=== PATIENT | female | born 1970 | race Two or more races ===

== ENCOUNTER → 2017-01-06 | Outpatient (REF) | payer BC ==
[2017-01-06 11:31] LABS: BASO % 0.6 % (0.0-1.0); EOS # 0.2 K/mm3 (0.0-0.50); EOS % 2.5 % (0.0-3.0); LARGE UNSTAINED CELL # 0.2 K/mm3 (0.0-0.4); LARGE UNSTAINED CELL % 3.4 % (0.0-4.0); LYMPH % 31.5 % (24.0-44.0); MEAN CORPUSCULAR HEMOGLOBIN 28.1 pg (27.0-33.0); MEAN CORPUSCULAR HGB CONC 32.2 g/dl (32.0-36.5); MEAN CORPUSCULAR VOLUME 87.2 fl (80.0-96.0); MONO # 0.4 K/mm3 (0.0-0.8); MONO % 6.2 % (0.0-5.0); NEUTROPHILS # 3.5 K/mm3 (1.8-7.7); NEUTROPHILS % 55.8 % (36.0-66.0); PLATELET COUNT, AUTOMATED 400 k/mm3 (150-450); RED CELL DISTRIBUTION WIDTH 12.8 % (11.5-14.5); WHITE BLOOD COUNT 6.3 K/mm3 (4.0-10.0)
[2017-01-06 12:15] LABS: ALBUMIN 3.5 GM/DL (3.2-5.2); ALBUMIN/GLOBULIN RATIO 0.88 (1.00-1.93); ALKALINE PHOSPHATASE 86 U/L (45-117); ALT/SGPT 21 U/L (12-78); ANION GAP 8 MEQ/L (8-16); AST/SGOT 14 U/L (15-37); BILIRUBIN,TOTAL 0.3 MG/DL (0.2-1.0); BLOOD UREA NITROGEN 15 MG/DL (7-18); CALCIUM LEVEL 9.3 MG/DL (8.5-10.1); CARBON DIOXIDE LEVEL 31 MEQ/L (21-32); CHLORIDE LEVEL 104 MEQ/L (98-107); CHOLESTEROL LEVEL 210 MG/DL (<200); CREATININE FOR GFR 0.69 MG/DL (0.55-1.02); GLOMERULAR FILTRATION RATE > 60.0 (>58); GLUCOSE, FASTING 103 MG/DL (70-105); POTASSIUM SERUM 3.9 MEQ/L (3.5-5.1); SODIUM LEVEL 143 MEQ/L (136-145); TOTAL PROTEIN 7.5 GM/DL (6.4-8.2); TRIGLYCERIDES LEVEL 115 MG/DL (<150)
== END ==
LOC: M SFHCCLAY 09:35
PROVIDERS: ATTEND Family Medicine
DX: K64.9 Unspecified hemorrhoids (principal); Z13.220 Encounter for screening for lipoid disorders

== ENCOUNTER → 2017-03-25 | Outpatient (REF) | payer BC | LOC: M LAB REF 13:15 | PROVIDERS: ATTEND Obstetrics & Gynecology | DX: Z12.4 Encounter for screening for malignant neoplasm of cervix (principal); R87.610 Atypical squamous cells of undetermined significance on cytologic smear of cervix (ASC-US) ==

== ENCOUNTER → 2017-04-07 | Outpatient (REF) | payer BC ==
[2017-04-07 13:59] LABS: MEAN CORPUSCULAR HEMOGLOBIN 29.6 pg (27.0-33.0); MEAN CORPUSCULAR HGB CONC 32.9 g/dl (32.0-36.5)
[2017-04-07 14:43] LABS: ALBUMIN 3.8 GM/DL (3.2-5.2); ALBUMIN/GLOBULIN RATIO 1.06 (1.00-1.93); ALKALINE PHOSPHATASE 88 U/L (45-117); ALT/SGPT 22 U/L (12-78); ANION GAP 6 MEQ/L (8-16); AST/SGOT 18 U/L (15-37); BILIRUBIN,TOTAL 0.5 MG/DL (0.2-1.0); BLOOD UREA NITROGEN 12 MG/DL (7-18); CALCIUM LEVEL 8.2 MG/DL (8.5-10.1); CARBON DIOXIDE LEVEL 29 MEQ/L (21-32); CHLORIDE LEVEL 105 MEQ/L (98-107); GLOMERULAR FILTRATION RATE > 60.0 (>58); GLUCOSE, FASTING 83 MG/DL (70-105); POTASSIUM SERUM 4.2 MEQ/L (3.5-5.1); SODIUM LEVEL 140 MEQ/L (136-145); TOTAL PROTEIN 7.4 GM/DL (6.4-8.2)
[2017-04-07 14:48] LABS: PROGESTERONE < 0.2 NG/ML
[2017-04-07 14:49] LABS: ESTRADIOL < 19.0 PG/ML; FOLLICLE STIMULATING HORMONE 115.8 mIU/mL; LUTEINIZING HORMONE 54.3 mIU/mL
[2017-04-12 00:06] LABS: ESTRONE SERUM 42 pg/mL (.)
== END ==
LOC: M LAB REF 12:43
PROVIDERS: ATTEND Obstetrics & Gynecology
DX: N92.1 Excessive and frequent menstruation with irregular cycle (principal)

== ENCOUNTER → 2017-07-07 | Outpatient (CLI) | payer BC ==
--- NOTE | 2017-07-07 09:45 | REP ---
Ultrasonography of the palpable lump in the abdominal wall left lateral: Ultrasonography of the palpable lump identifies a solid mass measuring 3.6 x 0.6 x 2.0 cm. With color Doppler assessment there is no vascular flow visible within this mass. Findings are nonspecific but possibly a lipoma. Consider MRI follow-up. Signed by Shankar Tyson MD 07/07/2017 08:19 A
== END ==
LOC: M RAD 06:51
PROVIDERS: ATTEND Physician Assistant
DX: Q79.59 Other congenital malformations of abdominal wall (principal)

== ENCOUNTER → 2017-12-12 | Outpatient (CLI) | payer BC | LOC: M CLY 15:32 | DX: M79.671 Pain in right foot (principal) | CPT/HCPCS: 73630 ==

== ENCOUNTER → 2018-02-01 | Outpatient (CLI) | payer BC | LOC: M RAD 16:25 | DX: M79.671 Pain in right foot (principal) ==

== ENCOUNTER → 2018-09-15 | Outpatient (REF) | payer OTHER | LOC: M SFHCLERA 17:06 | DX: N39.0 Urinary tract infection, site not specified (principal) | CPT/HCPCS: 87186 ==

== ENCOUNTER → 2018-12-18 | Outpatient (REF) | payer OTHER, SELFPAY | LOC: M LAB REF 16:16 | PROVIDERS: ATTEND Physician Assistant | DX: N39.0 Urinary tract infection, site not specified (principal) ==

== ENCOUNTER → 2019-01-02 | Outpatient (REF) | payer OTHER ==
[2019-01-02 14:22] LABS: FREE T4 1.11 NG/DL (0.76-1.46)
[2019-01-02 14:28] LABS: ESTRADIOL < 19.0 PG/ML; FOLLICLE STIMULATING HORMONE 105.1 mIU/mL; LUTEINIZING HORMONE 42.7 mIU/mL
[2019-01-04 00:07] LABS: TESTOSTERONE FREE (DIRECT) 0.8 pg/mL (0.0-4.2)
== END ==
LOC: M LAB REF 13:37
PROVIDERS: ATTEND Obstetrics & Gynecology
DX: N95.0 Postmenopausal bleeding (principal)

== ENCOUNTER 2019-04-27 07:42 | Day surgery (SDC) | payer OTHER ==
[~2019-04-27] VITALS: Ht 172.7 cm; Wt 93.4 kg
[2019-04-27] MEDS ORDERED: LR 1,000 ML IV ONE (08:00)
[2019-04-27] MEDS ORDERED: KETOROLAC 60 MG/2 ML VIAL (J1885) As Ordered ONE (08:18)
[2019-04-27] MEDS ORDERED: PROPOFOL 200 MG/20 ML VIAL As Ordered ONE (08:18)
[2019-04-27] MEDS ORDERED: LIDOCAINE 2% INJ 100 MG/5 ML SDV (FOR ANES.) As Ordered ONE (08:18)
[2019-04-27] MEDS ORDERED: ONDANSETRON 4MG/2ML VIAL (J2405) As Ordered ONE (08:18)
[2019-04-27] MEDS ORDERED: fentaNYL 100 MCG/2 ML INJECTION (J3010) As Ordered ONE (08:18)
[2019-04-27] MEDS ORDERED: MIDAZOLAM INJ 2 MG/2 ML VIAL (J2250) As Ordered ONE (08:18)
[2019-04-27] MEDS ORDERED: dexameTHASONE 4 MG/ML 1ML VIAL (J1100) As Ordered ONE ×2 (08:18→10:34)
[2019-04-27 08:34] LABS: HEMATOCRIT 42.2 % (36.0-47.0); HEMOGLOBIN 13.9 g/dl (12.0-15.5); MEAN CORPUSCULAR HEMOGLOBIN 28.1 pg (27.0-33.0); MEAN CORPUSCULAR HGB CONC 32.9 g/dl (32.0-36.5); MEAN CORPUSCULAR VOLUME 85.3 fl (80.0-96.0); PLATELET COUNT, AUTOMATED 261 10^3/uL (150-450); RED BLOOD COUNT 4.95 10^6/uL (4.00-5.40); WHITE BLOOD COUNT 4.7 10^3/uL (4.0-10.0)
[2019-04-27 08:35] LABS: URINE PREG TEST NEGATIVE (NEGATIVE)
[2019-04-27] MEDS ORDERED: ACETAMINOPHEN 1000MG 100ML IV BTL (OFIRMEV) (J0131 PER 10MG) As Ordered ONE (10:31)
[2019-04-27] MEDS ORDERED: IBUP80TA PO (11:01)
[2019-04-27] MEDS ORDERED: PERCOCET 5MG/325MG TAB PO PRN ×2 (11:30→11:45)
[2019-04-27] MEDS ORDERED: METOCLOPRAMIDE INJ 10MG/2ML VIAL (J2765) IV PRN (11:30)
[2019-04-27] MEDS ORDERED: ONDANSETRON 4MG/2ML VIAL (J2405) IV PRN (11:30)
[2019-04-27] MEDS ORDERED: LR 1,000 ML IV SCH ×2 (11:30→11:45)
[2019-04-27] MEDS ORDERED: fentaNYL 100 MCG/2 ML INJECTION (J3010) IV PRN (11:30)
[2019-04-27 13:35] VITALS: BP 148/84
[2019-04-27] MEDS ORDERED: IBUPROFEN 800 MG TAB PO SCH (15:00)
--- NOTE | 2019-04-28 08:26 | RO ---
DATE OF PROCEDURE: 04/27/2019 Nano is a 48-year-old female with postmenopausal bleeding. After counseling, a decision was made for dilation and curettage (D and C), hysteroscopy. PREOPERATIVE DIAGNOSIS: Postmenopausal bleeding. POSTOPERATIVE DIAGNOSIS: 1. Postmenopausal bleeding. 2. Atrophic cavity with a distorted cavity with possible fibroid. PROCEDURE: 1. Dilation and curettage. 2. Hysteroscopy. SURGEON: Roland Andersen DO MACHINE SHOP SPECIALIST: ANESTHESIA: General. COMPLICATIONS: None. ESTIMATED BLOOD LOSS: Less than 10 mL. FINDINGS: The uterus sounded to approximately 8 cm in size. Bilateral tubal ostia visualized. Atrophic endometrial cavity noted with a distorted cavity with possible fibroid in the fundal area. After obtaining informed consent, the patient was taken to the operating room where general anesthetic was found to be adequate. She was then draped and prepped in the usual sterile fashion in the dorsal lithotomy position. At this point, a straight catheter of the bladder was performed for approximately 150 mL of clear urine. We then placed a weighted speculum in the posterior fornix of the vagina. Using Cordova retractor, the anterior lip of the cervix was then grasped with a single-tooth tenaculum. The uterus was sounded to approximately 8 cm in size. The cervix serially dilated, the hysteroscope inserted with the above-noted finding. At this point, the hysteroscope was removed and sharp curettage of the endometrial lining was done. The tissues were sent to pathology for final diagnosis. Good hemostasis noted. The patient tolerated procedure well. She was then transferred to the recovery room in stable condition.
== END 2019-04-27 14:10 | disposition home or self-care (01) ==
LOC: M SDC 07:42
PROVIDERS: ATTEND Obstetrics & Gynecology
DX: N95.0 Postmenopausal bleeding (principal); Z85.3 Personal history of malignant neoplasm of breast; Z88.2 Allergy status to sulfonamides; Z92.21 Personal history of antineoplastic chemotherapy
CPT/HCPCS: 36415; 58558; 84703; 85027; 86850; 86900; 86901; 88305; J0131; J1100; J1885; J2250; J2405; J3010

== ENCOUNTER → 2019-12-25 | Outpatient (REF) | payer OTHER ==
[~2019-12-25] MED LIST: IBUP80TA PO
== END ==
LOC: M LAB REF 17:23
PROVIDERS: ATTEND Obstetrics & Gynecology
DX: R30.0 Dysuria (principal)

== ENCOUNTER 2020-01-16 09:42 | Day surgery (SDC) | payer OTHER ==
[2020-01-16] VITALS (7 sets, daily range): BP systolic 111–160; BP diastolic 58–83
[~2020-01-16] VITALS: Ht 172.7 cm; Wt 97.0 kg
[~2020-01-16 09:42] MED LIST changes: +LR 1,000 ML IV ONE; +ceFAZolin SOD 2 GM in IV 1 EA IV ONE
[2020-01-16 10:21] LABS: HEMATOCRIT 45.5 % (36.0-47.0); HEMOGLOBIN 14.8 g/dl (12.0-15.5); MEAN CORPUSCULAR HEMOGLOBIN 28.4 pg (27.0-33.0); MEAN CORPUSCULAR HGB CONC 32.5 g/dl (32.0-36.5); MEAN CORPUSCULAR VOLUME 87.3 fl (80.0-96.0); PLATELET COUNT, AUTOMATED 314 10^3/uL (150-450); RED BLOOD COUNT 5.21 10^6/uL (4.00-5.40); WHITE BLOOD COUNT 4.3 10^3/uL (4.0-10.0)
[2020-01-16] MEDS ORDERED: FLON1SPR NARES (10:28)
[2020-01-16 10:45] LABS: BLOOD UREA NITROGEN 8 MG/DL (7-18); CALCIUM LEVEL 8.6 MG/DL (8.5-10.1); CARBON DIOXIDE LEVEL 29 MEQ/L (21-32); CHLORIDE LEVEL 109 MEQ/L (98-107); CREATININE FOR GFR 0.68 MG/DL (0.55-1.30); GLOMERULAR FILTRATION RATE > 60.0 (>58); GLUCOSE, FASTING 105 MG/DL (70-100); POTASSIUM SERUM 3.9 MEQ/L (3.5-5.1); SODIUM LEVEL 141 MEQ/L (136-145)
[2020-01-16] MEDS ORDERED: BUPIVACAINE/EPIN 0.25% 30 ML VIAL As Ordered ONE (13:08)
[2020-01-16] MEDS ORDERED: FLUORESCEIN 10% (100MG/ML) 5 ML VIAL As Ordered ONE (13:08)
[2020-01-16] MEDS ORDERED: propofoL 200 MG/20 ML VIAL As Ordered ONE (13:42)
[2020-01-16] MEDS ORDERED: LIDOCAINE 2% INJ 100 MG/5 ML SDV (FOR ANES.) As Ordered ONE (13:42)
[2020-01-16] MEDS ORDERED: ONDANSETRON 4MG/2ML VIAL (J2405) As Ordered ONE (13:42)
[2020-01-16] MEDS ORDERED: dexameTHASONE 4 MG/ML 1ML VIAL (J1100) As Ordered ONE (13:42)
[2020-01-16] MEDS ORDERED: MIDAZOLAM INJ 2 MG/2 ML VIAL (J2250) As Ordered ONE (13:42)
[2020-01-16] MEDS ORDERED: SUGAMMADEX SODIUM 500 MG/5 ML VIAL (BRIDION) As Ordered ONE (13:42)
[2020-01-16] MEDS ORDERED: fentaNYL 250 MCG/5 ML INJECTION (J3010) As Ordered ONE (13:42)
[2020-01-16] MEDS ORDERED: METOCLOPRAMIDE INJ 10MG/2ML VIAL (J2765) As Ordered ONE (13:42)
[2020-01-16] MEDS ORDERED: ROCURONIUM BROMIDE 50 MG/5 ML VIAL As Ordered ONE (13:42)
[2020-01-16] MEDS ORDERED: KETOROLAC 60 MG/2 ML VIAL (J1885) As Ordered ONE (13:42)
[2020-01-16] MEDS ORDERED: ACETAMINOPHEN 1000MG 100ML IV BTL (OFIRMEV) (J0131 PER 10MG) As Ordered ONE (13:47)
[2020-01-16] MEDS ORDERED: IBUP80TA PO (15:29)
[2020-01-16] MEDS ORDERED: PERCOCET PO (15:29)
[2020-01-16] MEDS ORDERED: PERCOCET 5MG/325MG TAB PO PRN (15:30)
[2020-01-16] MEDS ORDERED: ONDANSETRON 4 MG TAB (S0181) PO PRN (15:30)
[2020-01-16] MEDS: fentaNYL 100 MCG/2 ML INJECTION (J3010) IV PRN ×4 (15:35→15:50)
[2020-01-16] MEDS: PERCOCET 5MG/325MG TAB PO PRN ×2 (15:40→16:10)
[2020-01-16] MEDS ORDERED: LR 1,000 ML IV SCH (16:00)
[2020-01-16] MEDS ORDERED: ONDANSETRON 4MG/2ML VIAL (J2405) IV PRN (16:00)
[2020-01-16] MEDS: LR 1,000 ML IV SCH (17:13)
[2020-01-16] MEDS: DOCUSATE SODIUM 100 MG CAP PO SCH (21:25)
[2020-01-16] MEDS: KETOROLAC 30 MG/ML VIAL (J1885) IV SCH (21:26)
[2020-01-17] VITALS: BP 108/76
[2020-01-17] MEDS: LR 1,000 ML IV SCH (03:16)
[2020-01-17] MEDS: KETOROLAC 30 MG/ML VIAL (J1885) IV SCH ×2 (03:17→08:34)
[2020-01-17 04:00] VITALS: BP 129/66
[2020-01-17 08:00] VITALS: BP 140/68
[2020-01-17] MEDS: DOCUSATE SODIUM 100 MG CAP PO SCH (08:33)
--- NOTE | 2020-01-17 10:25 | RO ---
DATE OF PROCEDURE: 01/16/2020 Nano is a 49-year-old female with an extensive history of pelvic pain and postmenopausal bleeding, unable to do endometrial biopsy. After counseling, a decision was made to proceed with a robotic hysterectomy, removal of both tubes and ovaries. PREOPERATIVE DIAGNOSES: 1. Postmenopausal bleeding. 2. Pelvic pain. 3. Cervical stenosis. POSTOPERATIVE DIAGNOSES: 1. Postmenopausal bleeding. 2. Pelvic pain. 3. Cervical stenosis. 4. Pelvic and bladder adhesions. PROCEDURES: 1. Robotic-assisted total hysterectomy. 2. Bilateral salpingo-oophorectomy. 3. Extensive lysis of bladder adhesions. 4. Cystoscopy. ANESTHESIA: General. SURGEON: Roland Andersen DO DECK LID FITTER: SIMRAN Perry COMPLICATION: None. ESTIMATED BLOOD LOSS: 50 mL. SPECIMENS SENT TO THE LABORATORY: Uterus, tubes, and ovaries. FINDINGS: Enlarged uterus with significant bladder adhesions to the lower uterine segment. Normal-appearing ovaries. The bilateral ureteral jets noted. No evidence of any bladder injury noted. DESCRIPTION OF PROCEDURE: Obtaining informed consent, the patient was taken to the operating room where general anesthetic was found to be adequate. She was then draped and prepped in the usual sterile fashion in the dorsal lithotomy position. At this point, a Metcalf catheter was placed in the bladder for drainage. We then turned our attention to the abdomen, where a Veress needle was placed. The abdomen was insufflated with CO2 gas to approximately 3.5 liters. Then, an 8-mm supraumbilical incision and port was made for robotic trocar. Then, two 8-mm lateral ports were placed for robotic arm #2 and the assist port on the right side and 8-mm lateral port placed for robotic arm #1. At this point, the patient was placed in steep Trendelenburg. The robot was brought to the patient's right side, and the camera port was then docked. Proper targeting was done. After targeting the robot, the arm #1 and arm #2 were then docked in usual fashion. Vessel sealer placed in arm #1. Bipolar grasper in arm #2. I then unscrubbed and went to the surgeon side and began the hysterectomy. The infundibulopelvic ligament was identified. This was cauterized and cut using the vessel sealer. This was taken all the way down to the uterine artery. The opposite side was done in a similar fashion. At this point, the bladder was found severely adherent to the anterior lower uterine segment. Careful dissection was done to attempt to free the bladder off the lower uterine segment. The bladder was then retrograde filled with 250 mL of normal saline. No extravasation of fluid was noted. At this point with the bladder completely out of the operative field, the anterior and posterior colpotomy was then performed, and the uterus, tubes, and ovaries were removed through the vagina. A 2-0 V-Loc suture was introduced, and the vaginal cuff was then closed in running fashion using 2-0 V-Loc suture. Pelvis copiously irrigated with normal saline and suctioned out. 1 mL of Furacin was given by the anesthesiologist to help with the cystoscopy. I then retrograde filled the bladder for 250 mL. The catheter was removed. Cystoscope inserted. Bilateral ureteral jets noted. No evidence of any bladder injury noted. At this point, the cystoscope was removed. A Metcalf catheter was placed back in the bladder. I then turned my attention to the abdomen, where the robotic trocars were removed, and the sites were closed using 3-0 Vicryl on a Jacob in a subcuticular fashion. 0.25% Marcaine was placed for postoperative pain, and Dermabond was placed. The patient tolerated the procedure well. She was then transferred to recovery room in stable condition.
[2020-01-17] MEDS ORDERED: IBUPROFEN 800 MG TAB PO SCH (23:00)
== END 2020-01-17 10:10 | disposition home or self-care (01) ==
LOC: M SDC 09:42 → M PED 16:55 → M SDC 01-17 10:10
PROVIDERS: ATTEND Obstetrics & Gynecology
DX: N72 Inflammatory disease of cervix uteri (principal); R10.2 Pelvic and perineal pain; N88.2 Stricture and stenosis of cervix uteri; N73.6 Female pelvic peritoneal adhesions (postinfective); N32.89 Other specified disorders of bladder; M54.5 Low back pain; K64.9 Unspecified hemorrhoids; Z87.440 Personal history of urinary (tract) infections; Z85.3 Personal history of malignant neoplasm of breast; Z92.21 Personal history of antineoplastic chemotherapy; Z90.13 Acquired absence of bilateral breasts and nipples; Z88.2 Allergy status to sulfonamides
CPT/HCPCS: 36415; 58571; 80048; 81025; 85027; 86850; 86900; 86901; 88307; 96374; 96376; J0131; J0690; J1100; J1885; J2250; J2405; J2765; J3010

== ENCOUNTER → 2020-10-30 | Outpatient (REF) | payer OTHER ==
[~2020-10-30] MED LIST changes: +FLON1SPR NARES; -LR 1,000 ML IV ONE; +PERCOCET PO; -ceFAZolin SOD 2 GM in IV 1 EA IV ONE
[2020-10-30 17:59] LABS: ALBUMIN 3.7 GM/DL (3.2-5.2); ALT/SGPT 28 U/L (12-78); BILIRUBIN,TOTAL 0.3 MG/DL (0.2-1.0); BLOOD UREA NITROGEN 11 MG/DL (7-18); CALCIUM LEVEL 9.1 MG/DL (8.5-10.1); CARBON DIOXIDE LEVEL 29 MEQ/L (21-32); CHLORIDE LEVEL 104 MEQ/L (98-107); CHOLESTEROL LEVEL 216 MG/DL (<200); CHOLESTEROL RISK RATIO 3.323 (<5); CREATININE FOR GFR 0.65 MG/DL (0.55-1.30); GLOMERULAR FILTRATION RATE > 60.0 (>58); GLUCOSE, FASTING 95 MG/DL (70-100); HDL CHOLESTEROL 65 MG/DL (>40); LDL CHOLESTEROL 135 MG/DL (<100); NON-HDL-C 151 MG/DL; POTASSIUM SERUM 4.2 MEQ/L (3.5-5.1); SODIUM LEVEL 137 MEQ/L (136-145); TOTAL PROTEIN 7.4 GM/DL (6.4-8.2); TRIGLYCERIDES LEVEL 78 MG/DL (<150)
== END ==
LOC: M SFHCCLAY 09:31
PROVIDERS: ATTEND Family Medicine
DX: E78.2 Mixed hyperlipidemia (principal)

== ENCOUNTER → 2021-06-23 | Outpatient (REF) | payer OTHER ==
[2021-06-24 16:00] LABS: APPEARANCE, URINE CLOUDY (CLEAR); BACTERIA, URINE AUTO 1+ (NEGATIVE); BILIRUBIN, URINE AUTO NEGATIVE (NEGATIVE); BLOOD, URINE BLOOD 2+ (NEGATIVE); COLOR, URINE YELLOW (YELLOW); GLUCOSE, URINE (UA) AUTO NEGATIVE (NEGATIVE); KETONE, URINE AUTO NEGATIVE (NEGATIVE); LEUKOCYTE ESTERASE, URINE AUTO 3+ (NEGATIVE); MUCUS, URINE SMALL (NEGATIVE); NITRITE, URINE AUTO NEGATIVE (NEGATIVE); PROTEIN, URINE AUTO 1+ mg/dL (NEGATIVE); RBC, URINE AUTO 146 /HPF (0-3); SPECIFIC GRAVITY URINE AUTO 1.011 (1.002-1.035); SQUAMOUS EPITHELIAL CELL UR AU 0 /HPF (0-6); UROBILINOGEN, URINE AUTO 0.2 mg/dL (0.0-2.0); WBC, URINE AUTO TNTC /HPF (0-3)
== END ==
LOC: M SFHCLERA 15:35
PROVIDERS: ATTEND Student in an Organized Health Care Education/Training Program
DX: N39.0 Urinary tract infection, site not specified (principal)

== ENCOUNTER → 2021-10-30 | Outpatient (CLI) | payer OTHER ==
--- NOTE | 2021-10-30 09:13 | REP ---
INDICATION: LEFT FOOT PAIN COMPARISON: None. TECHNIQUE: AP, lateral, bilateral oblique views left foot. FINDINGS: Osseous structures, joint spaces, and surrounding soft tissues are essentially age-appropriate and normal. There is no evidence for acute or healed injury. No overt arthritic changes. No subcutaneous emphysema or foreign body. IMPRESSION: Normal age-appropriate left foot radiographs. <Electronically signed by Berry Birmingham > 10/30/21 [id number]
== END ==
LOC: M CLY 08:47
PROVIDERS: ATTEND Family Medicine
DX: M79.672 Pain in left foot (principal)

== ENCOUNTER → 2023-05-19 | Outpatient (REF) | payer OTHER | LOC: M SFHCLERA 16:49 | PROVIDERS: ATTEND Student in an Organized Health Care Education/Training Program | DX: R30.0 Dysuria (principal) ==

== ENCOUNTER → 2023-11-04 | Outpatient (REF) | payer OTHER ==
[2023-11-04 12:55] LABS: ALBUMIN 3.6 G/DL (3.2-5.2); ALKALINE PHOSPHATASE 94 U/L (46-116); ALT/SGPT 26 U/L (7.0-40); AST/SGOT 19 U/L (<34); BILIRUBIN,TOTAL 0.4 MG/DL (0.3-1.2); BLOOD UREA NITROGEN 15 MG/DL (9-23); CALCIUM LEVEL 8.8 MG/DL (8.5-10.1); CARBON DIOXIDE LEVEL 29 MMOL/L (20-31); CHLORIDE LEVEL 107 MMOL/L (98-107); CHOLESTEROL LEVEL 197 MG/DL (<200); CHOLESTEROL RISK RATIO 3.31 (<5); CREATININE FOR GFR 0.58 MG/DL (0.55-1.30); GLOMERULAR FILTRATION RATE > 60.0 (>51); GLUCOSE, FASTING 104 MG/DL (60-100); HDL CHOLESTEROL 59.4 MG/DL (>40); IRON (FE) 44 UG/DL (50-170); LDL CHOLESTEROL 125.2 MG/DL (<100); MAGNESIUM LEVEL 2.1 MG/DL (1.8-2.4); NON-HDL-C 137.6 MG/DL; POTASSIUM SERUM 4.6 MMOL/L (3.5-5.1); SODIUM LEVEL 141 MMOL/L (136-145); TRIGLYCERIDES LEVEL 62 MG/DL (<150)
[2023-11-04 12:56] LABS: THYROID STIMULATING HORMONE 3.025 uIU/ML (0.55-4.78)
[2023-11-04 13:18] LABS: HEMOGLOBIN 14.3 g/dl (12.0-15.5); MEAN CORPUSCULAR HEMOGLOBIN 28.8 pg (27.0-33.0); MEAN CORPUSCULAR HGB CONC 32.5 g/dl (32.0-36.5); MEAN CORPUSCULAR VOLUME 88.5 fl (80.0-96.0); PLATELET COUNT, AUTOMATED 310 10^3/uL (150-450); RED BLOOD COUNT 4.97 10^6/uL (4.00-5.40); WHITE BLOOD COUNT 5.2 10^3/uL (4.0-10.0)
== END ==
LOC: M SFHCCLAY 07:59
PROVIDERS: ATTEND Family Medicine
DX: E78.2 Mixed hyperlipidemia (principal); R25.2 Cramp and spasm

== ENCOUNTER → 2024-12-17 | Outpatient (REF) | payer OTHER ==
[2024-12-17 17:55] LABS: HEMATOCRIT 45.9 % (36.0-47.0); HEMOGLOBIN 14.8 g/dl (12.0-15.5); MEAN CORPUSCULAR HGB CONC 32.2 g/dl (32.0-36.5); MEAN CORPUSCULAR VOLUME 86.8 fl (80.0-96.0); PLATELET COUNT, AUTOMATED 331 10^3/uL (150-450); RED BLOOD COUNT 5.29 10^6/uL (4.00-5.40)
[2024-12-17 18:17] LABS: ALBUMIN 3.8 G/DL (3.2-5.2); ALKALINE PHOSPHATASE 95 U/L (35-104); ALT/SGPT 21 U/L (7.0-40); AST/SGOT 16 U/L (<34); BILIRUBIN,TOTAL 0.4 MG/DL (0.3-1.2); BLOOD UREA NITROGEN 10 MG/DL (9-23); CALCIUM LEVEL 9.2 MG/DL (8.5-10.1); CARBON DIOXIDE LEVEL 28 MMOL/L (20-31); CHLORIDE LEVEL 105 MMOL/L (98-107); CHOLESTEROL LEVEL 243 MG/DL (<200); CHOLESTEROL RISK RATIO 4.02 (<5); CREATININE FOR GFR 0.62 MG/DL (0.55-1.30); GLOMERULAR FILTRATION RATE > 60.0 (>51); GLUCOSE, FASTING 88 MG/DL (60-100); HDL CHOLESTEROL 60.4 MG/DL (>40); LDL CHOLESTEROL 160.4 MG/DL (<100); NON-HDL-C 182.6 MG/DL; POTASSIUM SERUM 4.7 MMOL/L (3.5-5.1); SODIUM LEVEL 141 MMOL/L (136-145); TOTAL PROTEIN 7.8 G/DL (5.7-8.2); TRIGLYCERIDES LEVEL 111 MG/DL (<150)
[2024-12-17 18:19] LABS: FREE T4 1.16 NG/DL (0.89-1.76); THYROID STIMULATING HORMONE 2.677 uIU/ML (0.55-4.78)
== END ==
LOC: M SFHCCLAY 14:10
PROVIDERS: ATTEND Family Medicine
DX: R03.0 Elevated blood-pressure reading, without diagnosis of hypertension (principal); R07.9 Chest pain, unspecified; E78.2 Mixed hyperlipidemia

== ENCOUNTER → 2025-03-11 | Outpatient (REF) | payer OTHER | LOC: M SFHCCLAY 13:21 | PROVIDERS: ATTEND Physician Assistant | DX: R30.0 Dysuria (principal) ==

== ENCOUNTER → 2025-05-24 | Outpatient (REF) | payer OTHER | LOC: M SFHCCLAY 10:30 | PROVIDERS: ATTEND Physician Assistant | DX: B02.9 Zoster without complications (principal) ==